=== PATIENT | female | born 1990 | race African-American/Black ===

== ENCOUNTER 2019-12-14 20:11 | Inpatient (IN) | payer OTHER ==
[~2019-12-14 20:11] MED LIST: ceFAZolin SODIUM 1 GM VIAL IVPB ONE
[2019-12-14 20:24] VITALS: BMI 35.4
[2019-12-14] MEDS ORDERED: SODIUM CHLORIDE 0.9% 500 ML INFUS.BAG IV ONE (21:07)
--- NOTE | 2019-12-14 21:14 | PDOC ---
Attending Attestation - Resident Resident Name: Celestine Pham - ED Attending Attestation I have performed the following: I have examined & evaluated the patient, The case was reviewed & discussed with the resident, I agree w/resident's findings & plan - HPI HPI: 12/14/19 22:26 Pt trasferred from [facility], accepted by the in house CLIENT ACCOUNT ASSISTANT; report given to the ER doc as well. Pt is here for a D&C, as there is no L&D/CLIENT ACCOUNT ASSISTANT at [facility] at this time - Physicial Exam PE: 12/14/19 21:24 Large blood clot came ouit of vagina; now ooze of blood; hemodynamically stable. Pelvic exam normal in that os is open to fingertip; retroflexed. Pt has small POCs coming out of os, seen on speculum exam.. Pt has a normal HR, however she is on losartan Pt has clear lungs NAD pt states that she feels fatigued heart RRR no abd pain Pt has no flank pain She has suprapubic cramps. No swelling or edema of extemities 12/14/19 22:27 Pt has no fever no chills, no pallor; normal MS Pt has BP that is stable She is hemodynamically stable. - Medical Decision Making 12/14/19 21:12 I spoke to field consultant in house CLIENT ACCOUNT ASSISTANT (Dr. Oneill) who is going to the OR with a preeclamptic emergency. Pt is hemodymamically stable at this time. She passed a large blood clot through her vagina; however now os is closed to fingetip only; she has no active bleed in the vag vault. Her BPis stable at 103/53 and she has NSS started. Blood tests repeated here. Pt has a HB/HCT done at [facility] of 8.6/27 Blood type is 0-positive. 12/14/19 21:30 Pt had a Hb of 11.7/36 3 days ago. That dropped to 9.9/30. Today at [facility], it was 8.6/27.4 Currently 7.9/ type and screen pending here. Pt was assessed by Dr. Monte; stable to go to the OR with Dr Oneill once he is done. 12/14/19 22:59 pt is being called to the OR at this time; she is stable and feeling well. 12/14/19 23:05 Patient Name: KIM APONTE THIS IS A PRELIMINARY REPORT FROM [facility] DATE OF SERVICE: 2019-12-14 21:34:45 IMAGES: 31 EXAM: First trimester obstetrical sonogram. Clinical indication: Confirm intrauterine . There are no prior studies available for comparison. Findings: The uterus measures 10.8 x 5.37 m in diameter. Within the lower aspect of the uterine cavity there is an irregular shaped gestational sac with mean sac diameter measurements corresponding to an expected gestational age of 6 weeks 3 days. There appears to be a pole, but a heart rate was not detected. The right ovary measures 3.0 x 2.7 x 2.3 cm in diameter and has not unremarkable sonographic appearance. Color Doppler duplex interrogation of the right ovary demonstrates internal flow. The left ovary was not visualized. There is no definite free fluid within the pelvis. There is no abnormality identified within the bilateral adnexal regions. Impression: Intrauterine gestational sac which is somewhat irregular and within the lower uterine segment. Recommend follow-up sonogram in 7-10 days time to assess for viable intrauterine gestation. Discharge - Discharge Information Problems reviewed: Yes Clinical Impression/Diagnosis: Incomplete , Vaginal hemorrhage, Miscarriage - Follow up/Referral - Patient Discharge Instructions - Post Discharge Activity
--- NOTE | 2019-12-14 21:34 | PDOC ---
History of Present Illness - General Chief Complaint: Vaginal Bleeding Stated Complaint: MISCARAGE Time Seen by Provider: 12/14/19 21:07 History Source: Patient Exam Limitations: No Limitations - History of Present Illness Initial Comments: 29 yo female A2 approximately 6 weeks with PMH of PCOS and Bipolar presents. She presents with a 3 day hx of vaginal bleeding. She has been passing clots but denies passing parts. She endorses fatigue, SOB, palpitations, diaphoresis. She was seen at [facility] and told to come to [facility] to be seen by OB. Her Hb measured at 8.[address] Ramirez is consulted and on board. 12/14/19 21:49 12/14/19 23:46 Is this a multiple visit Asthma Patient?: No Past History - Medical History Allergies/Adverse Reactions: Allergies Allergy/AdvReac Type Severity Reaction Status Date / Time No Known Allergies Allergy Verified 12/14/19 20:24 Home Medications: Ambulatory Orders Amlodipine Besylate [Norvasc -] 5 mg PO DAILY 04/16/14 Hydrochlorothiazide [Hctz -] 25 mg PO DAILY 04/16/14 Azithromycin [Zithromax Z-KEILA (5 DAYS) -] 250 mg PO ASDIR #6 tablet 04/17/14 Guaifenesin AC [Robitussin AC] 10 ml PO Q8H #60 ml 04/17/14 Ibuprofen [Motrin -] 600 mg PO TID PRN #21 tablet 04/17/14 COPD: No Diabetes: Yes (gestational) HTN: Yes - Immunization History Immunization Up to Date: Yes - Psycho-Social/Smoking History Smoking History: Current every day smoker Number of Cigarettes Smoked Daily: 5 Information on smoking cessation initiated: Yes - Substance Abuse Hx (Audit-C & DAST Scrn) How often the patient has a drink containing alcohol: Never Score: In Men: 4 or > Positive; In Women: 3 or > Positive: 0 Screen Result (Pos requires Nsg. Audit-10AR): Negative In the last yr the pt used illegal drug/Rx for NonMed reason: No Score: Yes response is considered Positive: 0 Screen Result (Positive result requires Nsg. DAST-10): Negative Review of Systems - Review of Systems Constitutional: Yes: Malaise, Weakness. No: Chills, Fever HEENTM: No: Eye Pain, Recent change in vision, Double Vision Respiratory: Yes: Shortness of Breath, SOB with Exertion, SOB at Rest. No: Cough Cardiac (ROS): Yes: Lightheadedness, Palpitations. No: Edema, Syncope ABD/GI: No: Constipated, Diarrhea, Nausea, Vomiting : No: Incontinence, Pain, Urgency Musculoskeletal: Yes: Muscle Weakness. No: Joint Pain, Joint Swelling Integumentary: No: Change in Color, Change in Hair/Nails, Flushing, Pallor Neurological: No: Headache, Ataxia, Dizziness Psychiatric: No: Anxiety, Depression, Mood Swings Endocrine: Yes: Excessive Sweating. No: Intolerance to Cold, Intolerance to Heat *Physical Exam - Vital Signs Last Vital Signs Temp Pulse Resp BP Pulse Ox 98.3 F 64 18 98/35 L 100 12/14/19 20:21 12/14/19 20:21 12/14/19 20:21 12/14/19 20:21 12/14/19 20:21 - Physical Exam General Appearance: Yes: Appropriately Dressed, Apparent Distress HEENT: positive: Normal Voice Respiratory/Chest: positive: Lungs Clear, Normal Breath Sounds. negative: Chest Tender, Respiratory Distress Cardiovascular: positive: Regular Rhythm, Regular Rate, S1, S2 Female Pelvic Exam: positive: cervical os closed, vaginal bleeding. negative: adnexal tenderness Gastrointestinal/Abdominal: positive: Normal Bowel Sounds, Flat, Soft. negative: Tender Integumentary: positive: Normal Color, Dry, Warm Neurologic: positive: Fully Oriented, Alert, Normal Mood/Affect, Normal Response ED Treatment Course - LABORATORY CBC & Chemistry Diagram: 12/14/19 20:56 12/14/19 20:56 - RADIOLOGY Radiology Studies Ordered: Category Date Time Status TRANSVAGINAL US PREG [US] Stat Ultrasound 12/14/19 21:20 Ordered - Medications Given in the ED: ED Medications Discontinued Medications Generic Name Dose Route Start Last Admin Trade Name Freq PRN Reason Stop Dose Admin Sodium Chloride 1,000 ml 12/14/19 21:07 12/14/19 21:00 Normal Saline - IV 12/14/19 21:08 1,000 ml ONCE ONE Administration Medical Decision Making - Medical Decision Making 29 yo female A2 presents with 3 day hx of vaginal bleeding ruled as a threatened of a 6+ week . Transvaginal US identified a nonviable gestational sac within the uterus. Hb is 7.9, down from 8.6 earlier today with symptoms of fatigue, shortness of breath, palpation, and diaphoresis. Vitals are currently stable. Type and screen is ordered along with PT/INR. She is admitted to OB/Gyne for Dr. Lemus who will do a D&C tonight. Pt under care by Dr. Hammond who will determine if she requires continued inpatient medical care. 12/15/19 00:24 Discharge - Discharge Information Problems reviewed: Yes Clinical Impression/Diagnosis: Incomplete , Vaginal hemorrhage, Miscarriage Condition: Stable - Admission Yes - Follow up/Referral - Patient Discharge Instructions - Post Discharge Activity
[2019-12-14 21:37] LABS: BASO % 0.5 % (0-2.0); EOS % 0.6 % (0-4.5); HEMATOCRIT 25.4 % (32.4-45.2); HEMOGLOBIN 7.9 GM/dL (10.7-15.3); LYMPH % 18.8 % (8-40); MCH 23.7 pg (25.7-33.7); MCHC 31.4 g/dl (32.0-36.0); MEAN CELL VOLUME 75.6 fl (80-96); MEAN PLT VOLUME 9.9 fl (7.5-11.1); MONO % 4.7 % (3.8-10.2); NEUT % 75.4 % (42.8-82.8); PLATELET COUNT 213 K/MM3 (134-434); RBC 3.35 M/mm3 (3.60-5.2); RDW 15.2 % (11.6-15.6); WHITE BLOOD COUNT 14.4 K/mm3 (4.0-10.0)
[2019-12-14 21:50] LABS: INR 1.11 (0.83-1.09); PROTHROMBIN TIME (PATIENT) 13.1 SEC (9.7-13.0)
[2019-12-14 21:53] LABS: ACTIVATED PTT 25.5 SECONDS (25.2-36.5)
[2019-12-14 22:08] LABS: ALBUMIN 2.9 g/dl (3.4-5.0); BILIRUBIN,TOTAL 0.4 mg/dL (0.2-1); BLOOD UREA NITROGEN 11.5 mg/dL (7-18); CALCIUM 8.1 mg/dL (8.5-10.1); CREATININE 0.5 mg/dL (0.55-1.3); POTASSIUM 3.9 mmol/L (3.5-5.1); TOT PROT 5.9 g/dl (6.4-8.2)
[2019-12-14] MEDS ORDERED: PROPOFOL 20 ML ONE (22:57)
[2019-12-14] MEDS ORDERED: SUCCINYLCHOLINE CHLORIDE 200 MG/10 ML SYRINGE ONE (22:57)
[2019-12-14] MEDS ORDERED: MIDAZOLAM HCL 2 MG/2 ML SINGLE DOSE VIAL ONE (22:57)
[2019-12-14] MEDS ORDERED: KETOROLAC TROMETHAMINE 30 MG/1 ML VIAL ONE (23:53)
[2019-12-14] MEDS ORDERED: ceFAZolin SODIUM 1 GM VIAL ONE ×2 (23:55)
--- NOTE | 2019-12-15 00:01 | HP ---
Past Medical History - Primary Care Physician PCP:: Mehrdad Lemus - Admission Chief Complaint: Vaginal bleeding History of Present Illness: 29 yo , LMP 10/2019, was transferred form [facility] for evaluation, Patient has missed and retained products of conception History Source: Patient Limitations to Obtaining History: No Limitations - Past Medical History ...: 4 ...Para: 2 ...Spon : 1 ... Weeks Gestation by Dates: 8 Heme/Onc: Yes: Anemia - Past Surgical History Hx Myomectomy: No Hx Transabdominal Cerclage: No - Smoking History Smoking history: Current every day smoker Aproximately how many cigarettes per day: 5 - Alcohol/Substance Use Hx Alcohol Use: No - Social History Do you think of yourself as: Straight/Heterosexual History of Recent Travel: No Home Medications - Allergies Allergies/Adverse Reactions: Allergies Allergy/AdvReac Type Severity Reaction Status Date / Time No Known Allergies Allergy Verified 12/14/19 20:24 - Home Medications Home Medications: Ambulatory Orders Amlodipine Besylate [Norvasc -] 5 mg PO DAILY 04/16/14 Hydrochlorothiazide [Hctz -] 25 mg PO DAILY 04/16/14 Azithromycin [Zithromax Z-KEILA (5 DAYS) -] 250 mg PO ASDIR #6 tablet 04/17/14 Guaifenesin AC [Robitussin AC] 10 ml PO Q8H #60 ml 04/17/14 Ibuprofen [Motrin -] 600 mg PO TID PRN #21 tablet 04/17/14 Family Medical History Family History: Denies Review of Systems - Review of Systems Constitutional: reports: No Symptoms Eyes: reports: No Symptoms HENT: reports: No Symptoms Neck: reports: No Symptoms Cardiovascular: reports: No Symptoms Respiratory: reports: No Symptoms Gastrointestinal: reports: No Symptoms Genitourinary: reports: No Symptoms Breasts: reports: No Symptoms Reported Musculoskeletal: reports: No Symptoms Integumentary: reports: No Symptoms Neurological: reports: No Symptoms Endocrine: reports: No Symptoms Hematology/Lymphatic: reports: No Symptoms Psychiatric: reports: No Symptoms Physical Exam - Maternity Vital Signs: Vital Signs Temperature 98.3 F 12/14/19 20:21 Pulse Rate 59 L 12/14/19 21:30 Respiratory Rate 14 12/14/19 21:30 Blood Pressure 103/56 L 12/14/19 21:30 O2 Sat by Pulse Oximetry (%) 100 12/14/19 21:30 Constitutional: Yes: Well Nourished Eyes: Yes: WNL HENT: Yes: WNL Neck: Yes: WNL Cardiovascular: Yes: WNL Lungs: Clear to auscultation - Abdominal Exam/OB Fundal Height: 8 Number of Fetuses: Single - Vaginal Exam/OB Vaginal Bleeding: Yes Speculum Exam: No Dilatation (cm): 1 - Physical Exam Musculoskeletal: Yes: WNL Extremities: Yes: WNL Edema: No Integumentary: Yes: WNL Deep Tendon Reflex Grade: Normal +2 ...Motor Strength: WNL Psychiatric: Yes: WNL - Labs Lab Results: CBC, BMP 12/14/19 20:56 12/14/19 20:56 Hemorrhage Risk Assessment - Risk Factors Medium Risk Factors: Yes: None High Risk Factors: Yes: None Risk Score: 1 Risk Level: Medium Risk Problem List - Problems (1) Missed Code(s): O02.1 - MISSED Assessment/Plan 29 yo with missed and retained products of conception Admit for Suction Dilatation and curettage.
[2019-12-15] MEDS ORDERED: PROPOFOL 20 ML ONE (00:13)
[2019-12-15] MEDS ORDERED: MIDAZOLAM HCL 2 MG/2 ML SINGLE DOSE VIAL ONE (00:18)
[2019-12-15] MEDS ORDERED: IBUPROFEN 600 MG TABLET (FP) PO PRN (00:34)
[2019-12-15] MEDS ORDERED: ONDANSETRON 4 MG/2 ML VIAL IVPUSH PRN (00:42)
[2019-12-15] MEDS ORDERED: PROMETHAZINE HCL 25 MG/1 ML VIAL IVPUSH PRN (00:42)
[2019-12-15] MEDS ORDERED: ACETAMINOPHEN 325 MG TABLET (FP) PO PRN (00:43)
--- NOTE | 2019-12-15 00:50 | OP ---
Operative Note - Note: Operative Date: 12/15/19 Pre-Operative Diagnosis: Missed with retained products of conception Operation: Suction Dilatation and curretage Post-Operative Diagnosis: Same as Pre-op Surgeon: Mehrdad Lemus Anesthesiologist/CORN CUTTER OPERATOR: Jose Juan Fonseca Anesthesia: General Specimens Removed: Products of conception Estimated Blood Loss (mls): 40 Operative Report Dictated: Yes
[2019-12-15] MEDS: FERROUS SO4 325 MG TABLET (FP) PO SCH ×3 (02:45→22:06)
[2019-12-15] MEDS: metroNIDAZOLE 250 MG TABLET PO SCH ×3 (02:45→22:06)
[2019-12-15] MEDS: LACTATED RINGERS SOLUTION 1,000 ML IV SCH ×2 (02:46→11:47)
--- NOTE | 2019-12-15 08:12 | OP ---
DATE OF OPERATION: DATE OF DICTATION: 12/15/2019 PREOPERATIVE DIAGNOSIS: Missed with retained products of conception. POSTOPERATIVE DIAGNOSIS: Missed with retained products of conception. OPERATION: Suction, dilatation and curettage. SURGEON: Javier Kenny MD ANESTHESIOLOGIST: Cade Fonseca MD ANESTHESIA: General. URINE OUTPUT: Clear urine, 80 mL, obtained before surgery. ESTIMATED BLOOD LOSS: 40 mL. POSTOPERATIVE CONDITION: Satisfactory. OPERATIVE PROCEDURE: Patient admitted to operating room. General anesthesia obtained without difficulty. Patient then placed in the dorsal lithotomy position, prepped and draped in usual sterile fashion. A straight catheter inserted into the bladder and about 80 mL of clear urine obtained. Espino speculum was then placed in the lower aspect of the vagina, another Espino speculum placed in the upper aspect of the vagina and the cervix grasped with a tenaculum. Cervix was sounded to 10 cm length and dilated to 8 Hegar. Manual curettage was then performed and this was followed by suction curettage in which products of conception were obtained. Patient tolerated procedure well. Sponge, lap, instrument counts were correct x2. The products of conception obtained were sent for pathological analysis. JAVIER KENNY MD [id number]
[2019-12-15] MEDS ORDERED: MULTIVITAMINS (DAILY MVI) TABLET (FP) PO SCH (10:00)
[2019-12-15] MEDS ORDERED: DOCUSATE SODIUM 100 MG CAPSULE (FP) PO SCH (10:00)
[2019-12-15 11:20] LABS: BASO % 0.3 % (0-2.0); EOS % 0.5 % (0-4.5); LYMPH % 22.2 % (8-40); MCH 23.5 pg (25.7-33.7); MCHC 31.3 g/dl (32.0-36.0); MEAN CELL VOLUME 75.3 fl (80-96); MEAN PLT VOLUME 8.9 fl (7.5-11.1); MONO % 5.2 % (3.8-10.2); NEUT % 71.8 % (42.8-82.8); PLATELET COUNT 172 K/MM3 (134-434); RBC 2.78 M/mm3 (3.60-5.2); RDW 15.3 % (11.6-15.6); WHITE BLOOD COUNT 12.1 K/mm3 (4.0-10.0)
[2019-12-15 11:30] LABS: HEMOGLOBIN 6.6 GM/dL (10.7-15.3)
[2019-12-15 11:49] LABS: INR 1.08 (0.83-1.09); PROTHROMBIN TIME (PATIENT) 12.8 SEC (9.7-13.0)
[2019-12-15 11:52] LABS: ACTIVATED PTT 28.6 SECONDS (25.2-36.5)
--- NOTE | 2019-12-15 15:50 | PN ---
Progress Note (short form) - Note Progress Note: S/P Suction D & C for missed . No complaints today. VSS, afebrile Abdomen - no masses palpated Pelvic - Vaginal pad dry, No bleeding Plan - Patient with chronic anemia, initial hematocrit 25 and postsurgery 21 Counseled on blood transfusion, blood products and hematinics She prefers blood transfusion and 2 units of packed red blood cells requested. Continue with other treatment Problem List - Problems (1) Missed Code(s): O02.1 - MISSED
[2019-12-15 22:50] VITALS: BP 136/55; PULSE 67; TEMP 98.9
--- NOTE | 2019-12-16 01:37 | DS ---
Physical Exam-PROFESSOR OF ENGINEERING Vital Signs: Vital Signs Temperature 98.9 F 12/15/19 17:48 Pulse Rate 67 12/15/19 17:48 Respiratory Rate 20 12/15/19 17:48 Blood Pressure 136/55 L 12/15/19 17:48 O2 Sat by Pulse Oximetry (%) 97 12/15/19 09:00 Constitutional: Yes: Well Nourished Eyes: Yes: WNL HENT: Yes: WNL Neck: Yes: WNL Cardiovascular: Yes: WNL Respiratory: Yes: WNL Gastrointestinal: Yes: WNL Renal/: Yes: WNL Pelvis: Yes: WNL External Genitalia: Yes: Normal Vaginal Exam: Yes: Normal Cervix: Yes: Normal Uterus: Yes: Normal Adnexa: Normal: Bilateral, Not Palpable: Left ....Post : Yes: Uterus firm, Uterus non-tender Musculoskeletal: Yes: WNL Extremities: Yes: WNL Edema: No Integumentary: Yes: WNL Neurological: Yes: WNL ...Motor Strength: WNL Psychiatric: Yes: WNL Labs: CBC, BMP 12/15/19 11:00 12/14/19 20:56 Discharge Summary Problems reviewed: Yes Reason For Visit: VAGINAL BLEEDING Current Active Problems Missed (Acute) Condition: Stable - Instructions Disposition: HOME - Home Medications Comprehensive Discharge Medication List: Ambulatory Orders Amlodipine Besylate [Norvasc -] 5 mg PO DAILY 04/16/14 Hydrochlorothiazide [Hctz -] 25 mg PO DAILY 04/16/14 Azithromycin [Zithromax Z-KEILA (5 DAYS) -] 250 mg PO ASDIR #6 tablet 04/17/14 Guaifenesin AC [Robitussin AC] 10 ml PO Q8H #60 ml 04/17/14 Ibuprofen [Motrin -] 600 mg PO TID PRN #21 tablet 04/17/14
[2019-12-16 02:27] LABS: BASO % 0.3 % (0-2.0); EOS % 1.6 % (0-4.5); HEMATOCRIT 24.5 % (32.4-45.2); LYMPH % 34.1 % (8-40); MCH 25.2 pg (25.7-33.7); MCHC 32.7 g/dl (32.0-36.0); MEAN CELL VOLUME 77.1 fl (80-96); MEAN PLT VOLUME 9.1 fl (7.5-11.1); MONO % 5.5 % (3.8-10.2); NEUT % 58.5 % (42.8-82.8); PLATELET COUNT 148 K/MM3 (134-434); RBC 3.18 M/mm3 (3.60-5.2); RDW 15.8 % (11.6-15.6); WHITE BLOOD COUNT 8.6 K/mm3 (4.0-10.0)
--- NOTE | 2019-12-28 11:09 | PATH ---
Surgical Pathology Report Patient Name: KIM APONTE Med. Rec. #: [id number] /Age/Gender: 1990 (Age: 29) / F Account: [id number] Location: [facility] MED/SURG Taken: 12/14/2019 Received: 12/17/2019 Reported: 12/28/2019 Physicians: Mehrdad Lemus Specimen(s) Received PRODUCTS OF CONCEPTION Clinical History Miscarriage, missed Final Diagnosis PRODUCTS OF CONCEPTION, SUCTION D&C: CHORIONIC VILLI PRESENT, CONSISTENT WITH PRODUCTS OF CONCEPTION. This case was sent to [facility], [place], [place] for Molar Analysis and showed the following results: Diagnosis: - HYDROPIC DEGENERATION OF CHORIONIC VILLI. - NEGATIVE FOR MOLAR GESTATION. Marker Result Ploidy Description P57 Positive Molar vs. Non-Molar Gestation DNA Index/Ploidy 1.00 Diploid Molar vs. Non-Molar Gestation % S-Phase 3.3 Molar vs. Non-Molar Gestation See Integrated report ([id number]) for details. Electronically Signed Maritza Manzanares M.D. Gross Description Received in formalin labeled "products of conception," is a 5.0 x 5.0 x 0.8 cm aggregate of black brown soft tissue fragments. Villous tissue is identified. No somatic tissue is identified. A commissary representative portion is submitted in one cassette. /12/17/[address] [facility]
== END 2019-12-16 02:27 | disposition home or self-care (01) | DRG 544 ==
LOC: JER 20:11 → JASUSAT 22:27 → J8W 12-15 01:29
PROVIDERS: ADMIT Obstetrics & Gynecology; ATTEND Obstetrics & Gynecology
PROC: 10D17ZZ Extraction of Products of Conception, Retained, Via Natural or Artificial Opening (ICD-10-PCS; principal; 2019-12-15)
PROC: 30233N1 Transfusion of Nonautologous Red Blood Cells into Peripheral Vein, Percutaneous Approach (ICD-10-PCS; 2019-12-15)
DX: O02.1 Missed abortion (principal); D64.9 Anemia, unspecified; F17.210 Nicotine dependence, cigarettes, uncomplicated
CPT/HCPCS: 36415; 36430; 36511; 76817-TC; 80053; 85025; 85610; 85730; 86850; 86900; 86901; 86922; 88305-TC; 94760; 99285-25; P9038; P9058